=== PATIENT | female | born 1980 | race Caucasian/White ===

== ENCOUNTER 2017-08-27 09:29 | Outpatient (CLI) | payer BC ==
[~2017-08-27] VITALS: Ht 154.9 cm; Wt 69.3 kg
[2017-08-27 09:46] VITALS: Ht 154.9 cm; Wt 69.3 kg
[2017-08-27 09:47] VITALS: BP 110/67; PULSE 73
[2017-08-27] MEDS ORDERED: PNV11TAB PO (09:48)
--- NOTE | 2017-08-27 10:04 | RADRPT ---
PROCEDURE: US OB biophysical profile. CLINICAL INDICATION: decreased movements, GDM TECHNIQUE: Multiple sonographic images of the pelvis were obtained. The images were reviewed on a PACS workstation. COMPARISON: No prior studies are available for comparison. FINDINGS: There is a single viable intrauterine gestation. Cardiac activity is present with 154 beats per min [place]. There is a vertex presentation. The placenta is anterior. There is no evidence of placental abruption. There is a normal amount of amniotic fluid with an EMELI = 17 cm. Biophysical profile: movement 2/2 tone 2/2. breathing 2/2 EMELI 2/2 Total 05/08 RPTAT: AA . IMPRESSION: Normal biophysical profile. . .Milo Ramesh MD, MD Date Time Electronically viewed and signed by .Milo Ramesh MD, MD on 08/27/2017 10:04 .S/
--- NOTE | 2017-08-27 11:33 | PN ---
Triage Information Date/Time 08/27/17 Reason for visit: Weeks of Gestation 33 5/7 /Para 4/3 Diabetes: gestational Diabetes management: diet controlled Hypertention: none Additional information CAME FOR NST BPP DUE TO GDM A1 Objective Vital Signs Date Time Temp Pulse Resp B/P Pulse Ox O2 Delivery O2 Flow Rate FiO2 08/27/17 09:47 98.0 73 110/67 Heart Rate: 130's Contractions: None Results/Medications Results 24 hrs Laboratory Tests Test 08/27/17 09:50 Bedside Glucose 100 Imaging Results NST REACTIVE BPP 05/08 Disposition: Discharge Assessment/Plan NEEDS WEEKLY NST BPP RONEL MILLIGAN MD Aug 27, 2017 11:33
--- NOTE | 2017-08-27 12:12 | TRIAGE ---
OB Triage Datetime Report Generated by CPN: 08/27/2017 12:12 Datetime: 08/27/2017 11:26 Stage of : OB Triage Datetime: 08/27/2017 10:36 Labor Evaluation Frequency: 0 Monitor Mode: External Pattern: Normal: <= 5 Contractions in 10 Minutes Resting Tone [place]: Relaxed Heart Rate FHR Baseline Rate: 145 Monitor Mode: External US Variability: Moderate 6-25 bpm Accelerations: 10X10 Decelerations: None Category: Category I Pain Assessment Pain Scale: 0 Pain Presence: None/Denies Pain Type: N/A Pain Goal: 3 Pain Relief Measures: Comfort Measures Datetime: 08/27/2017 10:14 Stage of : OB Triage Datetime: 08/27/2017 09:43 Stage of : OB Triage Assessment Type: Triage Maternal Assessment Level of Consciousness: Fully Conscious DTR's/Clonus: DTRs 2+; No Clonus Headache: Denies Blurred Vision: No Respiratory Effort: Unlabored; Regular Rhythm; Equal Expansion Breath Sounds, Left: Clear and Equal Breath Sounds, Right: Clear and Equal Nausea/Vomiting: Denies RUQ Epigastric Pain: Denies Facial Edema: None Temperature Route: Axillary Fall Risk Assessment History of Falling: (0) No Secondary Diagnosis: (0) No Ambulatory Aid: (0) Bedrest/Nurse Assist IV Therapy: (0) No Gait: (0) Normal/Bedrest/Immobile Mental Status: (0) Oriented to Own Ability Fall Score: 0 Fall Risk Score Definition: No Risk: No action required Labor Evaluation Frequency: 0 Monitor Mode: External Resting Tone [place]: Relaxed Heart Rate FHR Baseline Rate: 145 Monitor Mode: External US Variability: Moderate 6-25 bpm Decelerations: None Pain Assessment Pain Scale: 0 Pain Presence: None/Denies Pain Type: N/A Pain Goal: 3 Pain Relief Measures: Comfort Measures Datetime: 08/27/2017 09:41 Time of Arrival: 08/27/2017 09:23 EGA: 33.5 Arrived By: Ambulatory Arrived From: Home Chief Complaint: NST/BPP GDM, DENIES BLEEDING, LEAKING OR UC'S Movement: Present Contractions: Denies/Absent Rupture of Membranes: Denies Vaginal Bleeding: None Vaginal Discharge: Denies Recent Sexual Intercouse: Denies Abdominal Trauma: Not Applicable Patient Complaints: None Time Provider Notified: 08/27/2017 10:14 Provider Notified: CHEL Initial Plan: MONITOR, BPP/NST
== END 2017-08-27 11:40 | disposition home or self-care (01) ==
LOC: OBT 09:29 → L-D 09:29 → OBT 11:40
PROVIDERS: ATTEND Obstetrics & Gynecology
DX: O24.410 Gestational diabetes mellitus in pregnancy, diet controlled (principal); O09.523 Supervision of elderly multigravida, third trimester; Z3A.33 33 weeks gestation of pregnancy
CPT/HCPCS: 76818; 82962; Z7500; G0463

== ENCOUNTER 2017-09-03 11:30 | Outpatient (CLI) | payer BC ==
[~2017-09-03] VITALS: Ht 154.9 cm; Wt 69.7 kg
[~2017-09-03 11:30] MED LIST: PNV11TAB PO
[2017-09-03 12:00] VITALS: BP 99/60; PULSE 77; Ht 154.9 cm; Wt 69.7 kg
--- NOTE | 2017-09-03 12:28 | RADRPT ---
PROCEDURE: US OB biophysical profile. CLINICAL INDICATION: Biophysical profile TECHNIQUE: Multiple sonographic images of the pelvis were obtained. The images were reviewed on a PACS workstation. COMPARISON: None FINDINGS: There is a single live intrauterine , in breech presentation. A normal heart rate is identified measuring 125 beats per minute. The amniotic fluid index is within normal limits measurin g 12.7 cm. Biophysical profile: movement 2/2 tone 2/2. breathing 2/2 EMELI 2/2 Total 8/8 IMPRESSION: 1. Biophysical profile score of 8/8. 2. Single live intrauterine in breech presentation with normal heart rate of 125 bpm . 3. Normal amniotic fluid index of 12.7 cm. RPTAT: AAPP Physician Erika Date Time Electronically viewed and signed by Physician Erika on 09/03/2017 12:28 ZHANE/
--- NOTE | 2017-09-03 12:58 | PN ---
Triage Information Date/Time Reason for visit: NST BPP Weeks of Gestation 34+ /Para 4/3 Diabetes: gestational Diabetes management: diet controlled Hypertention: none Objective Vital Signs Date Time Temp Pulse Resp B/P Pulse Ox O2 Delivery O2 Flow Rate FiO2 09/03/17 12:00 98.6 77 99/60 Heart Rate: 140's Contractions: None Results/Medications Results 24 hrs Laboratory Tests Test 09/03/17 12:42 Bedside Glucose 84 Disposition: Discharge Assessment/Plan Precautions discussed with patient Patient's questions answered OLGA ESCAMILLA M.D. Sep 03, 2017 12:58
--- NOTE | 2017-09-03 13:15 | TRIAGE ---
OB Triage Datetime Report Generated by CPN: 09/03/2017 13:15 Datetime: 09/03/2017 12:52 Stage of : OB Triage Datetime: 09/03/2017 12:46 Stage of : OB Triage Datetime: 09/03/2017 12:06 Stage of : OB Triage Assessment Type: Triage Maternal Assessment Level of Consciousness: Fully Conscious DTR's/Clonus: DTRs 2+; No Clonus Headache: Denies Blurred Vision: No Respiratory Effort: Unlabored; Regular Rhythm; Equal Expansion Breath Sounds, Left: Clear and Equal Breath Sounds, Right: Clear and Equal Nausea/Vomiting: Denies RUQ Epigastric Pain: Denies Facial Edema: None Temperature Route: Axillary Fall Risk Assessment History of Falling: (0) No Secondary Diagnosis: (0) No Ambulatory Aid: (0) Bedrest/Nurse Assist IV Therapy: (0) No Gait: (0) Normal/Bedrest/Immobile Mental Status: (0) Oriented to Own Ability Fall Score: 0 Fall Risk Score Definition: No Risk: No action required Labor Evaluation Frequency: applied Monitor Mode: External Resting Tone [place]: Relaxed Heart Rate FHR Baseline Rate: applied Monitor Mode: External US Pain Assessment Pain Scale: 0 Pain Presence: None/Denies Pain Type: N/A Pain Goal: 3 Pain Relief Measures: Comfort Measures Datetime: 09/03/2017 12:04 Time of Arrival: 09/03/2017 11:15 EGA: 34.5 Arrived By: Ambulatory Arrived From: Home Chief Complaint: weekly nst/bpp gdm, denies bleeding, leaking, or uc's Movement: Present Contractions: Denies/Absent Rupture of Membranes: Denies Vaginal Bleeding: None Vaginal Discharge: Denies Recent Sexual Intercouse: Denies Abdominal Trauma: Not Applicable Patient Complaints: None Time Provider Notified: 09/03/2017 12:46 Provider Notified: [email or web address] Initial Plan: bpp/nst Datetime: 08/27/2017 09:43 Fall Score: 0 Fall Risk Score Definition: No Risk: No action required Datetime: 08/27/2017 09:41 EGA: 33.5
== END 2017-09-03 13:05 | disposition home or self-care (01) ==
LOC: L-D 11:30 → OBT 11:30
PROVIDERS: ATTEND Obstetrics & Gynecology
DX: O24.410 Gestational diabetes mellitus in pregnancy, diet controlled (principal); Z3A.34 34 weeks gestation of pregnancy
CPT/HCPCS: 76818; 82962; Z7500; G0463

== ENCOUNTER 2017-09-10 13:30 | Outpatient (CLI) | payer BC ==
[~2017-09-10] VITALS: Ht 152.4 cm; Wt 70.9 kg
[2017-09-10 14:08] VITALS: Ht 152.4 cm; Wt 70.9 kg
[2017-09-10 14:09] VITALS: BP 101/65; PULSE 65; RESP 18
--- NOTE | 2017-09-10 14:11 | RADRPT ---
PROCEDURE: Obstetrical ultrasound for biophysical profile CLINICAL INDICATION: Biophysical profile. . TECHNIQUE: Obstetrical ultrasound of the uterus for biophysical profile. Transabdominal views are obtained. COMPARISON: None FINDINGS: Single intrauterine gestation. Presentation: Cephalic. Placenta: Anterior. No evidence of placental abruption. No evidence of placenta previa. breathing movement = 2/2 tone = 2/2 motion = 2/2 EMELI = 2/2 EMELI = 17.0 cm heart rate: 127 beats per minute IMPRESSION: Single intrauterine gestation. Biophysical profile 05/08 RPTAT: AADD .Ric Khan MD, MD Date Time Electronically viewed and signed by .Ric Khan MD, on 09/10/2017 14:10 .B/
--- NOTE | 2017-09-10 14:37 | PN ---
Triage Information Date/Time Reason for visit: NST BPP Weeks of Gestation 35+ /Para 4/3 Diabetes: gestational Diabetes management: diet controlled Objective Vital Signs Date Time Temp Pulse Resp B/P Pulse Ox O2 Delivery O2 Flow Rate FiO2 09/10/17 14:09 98.2 65 18 101/65 Heart Rate: 140's Disposition: Discharge Assessment/Plan Precautions discussed with patient OLGA ESCAMILLA M.D. Sep 10, 2017 14:37
--- NOTE | 2017-09-10 15:26 | TRIAGE ---
OB Triage Datetime Report Generated by CPN: 09/10/2017 15:26 Datetime: 09/10/2017 14:31 Stage of : OB Triage Datetime: 09/10/2017 14:23 Stage of : OB Triage Datetime: 09/10/2017 14:03 Stage of : OB Triage Assessment Type: Triage Maternal Assessment Level of Consciousness: Fully Conscious DTR's/Clonus: DTRs 2+; No Clonus Headache: Denies Blurred Vision: No Respiratory Effort: Unlabored; Regular Rhythm; Equal Expansion Breath Sounds, Left: Clear and Equal Breath Sounds, Right: Clear and Equal Nausea/Vomiting: Denies RUQ Epigastric Pain: Denies Facial Edema: None Temperature Route: Axillary Fall Risk Assessment History of Falling: (0) No Secondary Diagnosis: (0) No Ambulatory Aid: (0) Bedrest/Nurse Assist IV Therapy: (0) No Gait: (0) Normal/Bedrest/Immobile Mental Status: (0) Oriented to Own Ability Fall Score: 0 Fall Risk Score Definition: No Risk: No action required Labor Evaluation Frequency: 0 Monitor Mode: External Pattern: Normal: <= 5 Contractions in 10 Minutes Resting Tone [place]: Relaxed Heart Rate FHR Baseline Rate: 135 Monitor Mode: External US Variability: Moderate 6-25 bpm Accelerations: 10X10 Decelerations: None Category: Category I Pain Assessment Pain Scale: 0 Pain Presence: None/Denies Pain Type: N/A Pain Goal: 3 Pain Relief Measures: Comfort Measures Datetime: 09/10/2017 14:02 Time of Arrival: 09/10/2017 13:25 EGA: 35.5 Arrived By: Ambulatory Arrived From: Home Chief Complaint: FOLLOW UP GDM, DENIES BLEEDING, UC'S, OR LEAKING Movement: Present Contractions: Denies/Absent Rupture of Membranes: Denies Vaginal Bleeding: None Vaginal Discharge: Denies Recent Sexual Intercouse: Denies Abdominal Trauma: Not Applicable Patient Complaints: None Time Provider Notified: 09/10/2017 14:23 Provider Notified: [email or web address] Initial Plan: MONITOR, BPP/EMELI Datetime: 09/03/2017 12:06 Fall Score: 0 Fall Risk Score Definition: No Risk: No action required Datetime: 09/03/2017 12:04 EGA: 34.5 Datetime: 08/27/2017 09:43 Fall Score: 0 Fall Risk Score Definition: No Risk: No action required Datetime: 08/27/2017 09:41 EGA: 33.5
== END 2017-09-10 14:45 | disposition home or self-care (01) ==
LOC: L-D 13:30 → OBT 13:30
PROVIDERS: ATTEND Obstetrics & Gynecology
DX: O24.410 Gestational diabetes mellitus in pregnancy, diet controlled (principal); Z3A.35 35 weeks gestation of pregnancy
CPT/HCPCS: 76818; 82962; Z7500; G0463

== ENCOUNTER 2017-10-15 18:35 | Outpatient (CLI) | END 2017-10-15 21:17 | disposition home or self-care (01) ==

== ENCOUNTER 2017-10-16 08:22 | Inpatient (IN) | END 2017-10-20 14:35 | disposition home or self-care (01) | DRG 766 ==